=== PATIENT | female | born 1990 | race Caucasian/White ===

== ENCOUNTER 2017-03-10 08:26 | Emergency (ER) | payer SELFPAY ==
[~2017-03-10] VITALS: Ht 167.6 cm; Wt 124.0 kg
[2017-03-10 08:30] VITALS: BP 140/77; PULSE 81; RESP 20; TEMP 97.6; O2SAT 99
--- NOTE | 2017-03-10 08:50 | PD ---
HPI Chief Complaint: Complaint Time Seen by Provider: 08:41 Travel History International Travel<30 days: No Contact w/Intl Traveler<30days: No Traveled to known affect area: No History of Present Illness HPI The patient was seen and examined in the presence of the nurse. This patient complains of right flank pain. It radiates toward the right groin. Duration 45 minutes. Symptoms moderately severe. She has history of kidney stone in the past and this feels similar. She denies injury or fever. She has some nausea. No alleviating factors. No exacerbating factors. PFSH Past Medical History Diminished Hearing: No Genitourinary: Yes (FREQUENT UTI) Kidney Stones: Yes Respiratory: Yes (sits around smoking too much, starts to wheeze) Immunizations Current: Yes Tetanus Vaccination: Unknown Influenza Vaccination: No ?: Not LMP: 03/10/17 : 0 Miscarriage: 0 : 0 Past Surgical History Surgical History: No Previous Surgery Social History Alcohol Use: No Tobacco Use: No Substance Use: No Allergies-Medications (Allergen,Severity, Reaction): Coded Allergies: naproxen (Unverified Allergy, Intermediate, hives, 03/10/17) Reported Meds & Prescriptions Reported Meds & Active Scripts Active Cipro (Ciprofloxacin HCl) 500 Mg Tab 500 Mg PO BID Percocet (Oxycodone-Acetaminophen) 5-325 mg Tab 1 Tab PO Q6H PRN Zofran (Ondansetron HCl) 4 Mg Tab 4 Mg PO Q6HR PRN Flomax (Tamsulosin HCl) 0.4 Mg Cap 0.4 Mg PO HS Review of Systems General / Constitutional: No: Fever Eyes: No: Visual changes HENT: No: Headaches Cardiovascular: No: Chest Pain or Discomfort Respiratory: No: Shortness of Breath Gastrointestinal: Positive: Nausea, No: Abdominal Pain Genitourinary: Positive: Flank Pain, No: Dysuria Musculoskeletal: No: Pain Skin: No Rash Neurologic: No: Weakness Psychiatric: No: Depression Endocrine: No: Polydipsia Hematologic/Lymphatic: No: Easy Bruising Physical Exam Narrative GENERAL: Well-nourished, well-developed patient with right flank pain. SKIN: Focused skin assessment reveals no rash and nodules. Skin is Warm and dry. HEAD: Atraumatic. Normocephalic. EYES: Pupils equal and round. No scleral icterus. No injection or drainage. ENT: No nasal bleeding or discharge. Mucous membranes pink and moist. NECK: Trachea midline. No JVD. CARDIOVASCULAR: Regular rate and rhythm. No murmur appreciated. RESPIRATORY: No accessory muscle use. Clear to auscultation. Breath sounds equal bilaterally. GASTROINTESTINAL: Abdomen soft, non-tender, nondistended. Hepatic and splenic margins not palpable. MUSCULOSKELETAL: No obvious deformities. No clubbing. No cyanosis. No edema. NEUROLOGICAL: Awake and alert. No obvious cranial nerve deficits. Motor grossly within normal limits. Normal speech. PSYCHIATRIC: Appropriate mood and affect; insight and judgment normal. Data Data Last Documented VS Vital Signs Date Time Temp Pulse Resp B/P (MAP) Pulse Ox O2 Delivery O2 Flow Rate FiO2 03/10/17 09:25 94 16 142/96 (111) 100 Room Air 03/10/17 08:[address] Abd/Pel W/O Iv Contrast (03/10/17 ) Ed Urine Pregnancytest Poc (03/10/17 08:46) Urinalysis - C+S If Indicated (03/10/17 08:46) Ondansetron Inj (Zofran Inj) (03/10/17 09:00) Morphine Inj (Morphine Inj) (03/10/17 09:00) Morphine Inj (Morphine Inj) (03/10/17 09:15) Ondansetron Inj (Zofran Inj) (03/10/17 09:15) Urine Culture (03/10/17 09:10) Ed Discharge Order (03/10/17 11:12) Labs Laboratory Tests Test 03/10/17 09:10 Urine Color LIGHT-RED Urine Turbidity CLOUDY Urine pH 6.0 Urine Specific [place] 1.016 Urine Protein 30 mg/dL Urine Glucose (UA) NEG mg/dL Urine Ketones NEG mg/dL Urine Occult Blood LARGE Urine Nitrite NEG Urine Bilirubin NEG Urine Urobilinogen LESS THAN 2.0 MG/DL Urine Leukocyte Esterase MOD Urine RBC /hpf Urine WBC /hpf Urine Squamous Epithelial Cells 2 /hpf Urine Bacteria MANY /hpf Microscopic Urinalysis Comment CULTURE INDICATED MDM Medical Decision Making Medical Screen Exam Complete: Yes Emergency Medical Condition: Yes Medical Record Reviewed: Yes Differential Diagnosis Kidney stone, sciatica, pyelonephritis Narrative Course I have reviewed the patient's electronic medical record. Patient was seen here for kidney stone 2013 I gave her injection of morphine and Zofran for symptom relief Urine is negative Urinalysis shows red and white cells and will be cultured CT of abdomen and pelvis shows a 2 mm right sided kidney stone with some hydronephrosis. I've written prescriptions for pain and nausea medicine as well as a week of Flomax and a week of Cipro This is not her first kidney stone. She should follow-up with urology. Hopefully this will pass given the small size of the stone Diagnosis Primary Impression: Kidney stone on right side Additional Instructions: The patient was advised to follow up with urologist and return if they worsen. The patient was warned about potential sedation for the medications they will receive on prescription. Med/Other Pt SpecificInfo: Prescription(s) given Scripts Ciprofloxacin (Cipro) 500 Mg Tab 500 MG PO BID for Infection, #14 TAB 0 Refills Prov: Yves Singh MD 03/10/17 Oxycodone-Acetaminophen (Percocet) 5-325 mg Tab 1 TAB PO Q6H Y for PAIN, #25 TAB 0 Refills Prov: Yves Singh MD 03/10/17 Ondansetron (Zofran) 4 Mg Tab 4 MG PO Q6HR Y for NAUSEA OR VOMITING, #15 TAB 0 Refills Prov: Yves Singh MD 03/10/17 Tamsulosin (Flomax) 0.4 Mg Cap 0.4 MG PO HS for Manage Prostate Problems, #7 CAP 0 Refills Prov: Yves Singh MD 03/10/17 Disposition: 01 DISCHARGE HOME Condition: Stable Yves Singh MD Mar 10, 2017 08:50
[2017-03-10] MEDS ORDERED: MORPHINE SULFATE 4 MG/ML INJ IM ONE (09:00)
[2017-03-10] MEDS ORDERED: ONDANSETRON HCL 4 MG/2 ML VIAL IM ONE (09:00)
[2017-03-10] MEDS ORDERED: ONDANSETRON HCL 4 MG/2 ML VIAL IV ONE (09:15)
[2017-03-10] MEDS ORDERED: MORPHINE SULFATE 4 MG/ML INJ IV PUSH ONE (09:15)
[2017-03-10 09:25] VITALS: BP 142/96; PULSE 94; RESP 16; O2SAT 100
[2017-03-10 09:37] LABS: BACTERIA, URINE MANY /hpf; BLOOD, URINE LARGE (NEG); COMMENT (UR) CULTURE INDICATED; CULTURE IF INDICATED CULTURE INDICATED; GLUCOSE,URINE NEG (NEG); KETONE, URINE NEG (NEG); NITRITE,URINE NEG (NEG); SQUAMOUS EPITHELIAL CELL URINE 2 /hpf (0-5); URINE COLOR LIGHT-RED (YELLW/STRAW)
--- NOTE | 2017-03-10 10:16 | RADRPT ---
EXAM DATE/TIME: 03/10/2017 09:52 [facility] COMPARISON: CT ABDOMEN & PELVIS W/O CONTRAST, January 19, 2013, 22:21. INDICATIONS : Right flank pain. ORAL CONTRAST: No oral contrast ingested. RADIATION DOSE: 31.72 CTDIvol (mGy) ; Patient body habitus MEDICAL HISTORY : Renal calculi. SURGICAL HISTORY : None. ENCOUNTER: Initial ACUITY: 1 day PAIN SCALE: 7/10 LOCATION: Right flank TECHNIQUE: Volumetric scanning of the abdomen and pelvis was performed. Using automated exposure control and ad justment of the mA and/or kV according to patient size, radiation dose was kept as low as reasonably achievable to obtain optimal diagnostic quality images. DICOM format image data is available electro nically for review and comparison. FINDINGS: LOWER LUNGS: The visualized lower lungs are clear. LIVER: The liver is diffusely hypodense. There are no focal space-occupying lesions or evidence of biliary d uct dilatation. There is no evidence of cholelithiasis. SPLEEN: Normal size without lesion. PANCREAS: Within normal limits. KIDNEYS: The right renal collecting system is mildly distended. A 2 mm calculus is identified in the right ure teropelvic junction. Kidneys and collecting system are otherwise unremarkable. ADRENAL GLANDS: Within normal limits. VASCULAR: There is no aortic aneurysm. BOWEL/MESENTERY: The stomach, small bowel, and colon demonstrate no acute abnormality. There is no free intraperitone al air or fluid. ABDOMINAL WALL: Within normal limits. RETROPERITONEUM: There is no lymphadenopathy. BLADDER: No wall thickening or mass. REPRODUCTIVE: Within normal limits. INGUINAL: There is no lymphadenopathy or hernia. MUSCULOSKELETAL: Within normal limits for patient age. CONCLUSION: 1. 2 mm calculus in the right ureteropelvic junction with mild hydronephrosis. 2. Hepatic steatosis. 3. No other significant abnormality. Esequiel Comer MD on March 10, 2017 at 10:11 Board Certified Radiologist. This report was verified electronically.
[2017-03-10] MEDS ORDERED: CIPR-9 PO (11:14)
[2017-03-10] MEDS ORDERED: ZOFR4TAB PO (11:14)
[2017-03-10] MEDS ORDERED: PERC5TAB12 PO (11:14)
[2017-03-10] MEDS ORDERED: TAMS5CAP PO (11:14)
[2017-03-10 11:44] VITALS: BP 136/80
== END 2017-03-10 11:44 | disposition home or self-care (01) ==
LOC: NEPE 08:26
DX: N20.0 Calculus of kidney (principal); R11.0 Nausea; Z87.442 Personal history of urinary calculi; Z87.448 Personal history of other diseases of urinary system
CPT/HCPCS: 74176; 81001; 84703; 87086; 96374; 96375; 99285; J2270; J2405

== ENCOUNTER 2017-03-15 09:15 | Emergency (ER) | payer SELFPAY ==
[~2017-03-15] VITALS: Ht 167.6 cm; Wt 130.0 kg
[~2017-03-15 09:15] MED LIST: CIPR-9 PO; PERC5TAB12 PO; TAMS5CAP PO; ZOFR4TAB PO
[2017-03-15 09:17] VITALS: BP 140/93; PULSE 104; RESP 14; TEMP 98.7; O2SAT 98
[2017-03-15 09:41] VITALS: BP 145/63; PULSE 95; RESP 18; O2SAT 98
[2017-03-15] MEDS ORDERED: SODIUM CHLOR 0.9% 1000 ML INJ 1,000 ML IV SCH (09:54)
[2017-03-15] MEDS ORDERED: KETOROLAC TROMETHAMINE 30 MG/ML (IVP) VIAL IVP ONE (10:00)
[2017-03-15] MEDS ORDERED: SODIUM CHLORIDE 0.9% FLUSH 10 ML FLUSH IV FLUSH PRN (10:00)
[2017-03-15] MEDS ORDERED: ONDANSETRON HCL 4 MG/2 ML VIAL IVP ONE (10:00)
[2017-03-15 10:12] VITALS: RESP 18; O2SAT 98
[2017-03-15 10:27] LABS: AUTOMATED NEUTROPHIL # 10.1 TH/MM3 (1.8-7.7); BASOPHIL # 0.1 TH/MM3 (0-0.2); BASOPHIL % 0.5 % (0.0-2.0); EOSINOPHIL # 0.1 TH/MM3 (0-0.4); EOSINOPHIL % 0.5 % (0.0-4.0); HEMATOCRIT 39.3 % (35.0-46.0); HEMO FLAGS DIFF FINAL; LYMPH % 11.2 % (9.0-44.0); LYMPHOCYTE # 1.3 TH/MM3 (1.0-4.8); MEAN CELL VOLUME 88.8 FL (80.0-100.0); MEAN CORPUSCULAR HEMOGLOBIN 28.7 PG (27.0-34.0); MEAN CORPUSCULAR HGB CONC 32.4 % (32.0-36.0); MONO % 3.3 % (0.0-8.0); NEUT % 84.5 % (16.0-70.0); PLATELET COUNT 347 TH/MM3 (150-450); RED BLOOD COUNT 4.42 MIL/MM3 (4.00-5.30); RED CELL DISTRIBUTION WIDTH 14.1 % (11.6-17.2)
[2017-03-15 10:40] LABS: ANION GAP 4 MEQ/L (5-15); AST (GOT) 20 U/L (15-37); BICARBONATE 27.7 MEQ/L (21.0-32.0); BLOOD UREA NITROGEN 11 MG/DL (7-18); CHLORIDE 106 MEQ/L (98-107); GLOMERULAR FILTRATION RATE 63 ML/MIN (>89); SODIUM (NA) 138 MEQ/L (136-145)
[2017-03-15 10:41] LABS: ALT (GPT) 42 U/L (10-53)
[2017-03-15 10:43] LABS: ALKALINE PHOSPHATASE 62 U/L (45-117); TOTAL BILIRUBIN ADULT 0.2 MG/DL (0.2-1.0)
[2017-03-15 10:48] LABS: BLOOD, URINE LARGE (NEG); GLUCOSE,URINE NEG (NEG); KETONE, URINE NEG (NEG); NITRITE,URINE NEG (NEG); URINE COLOR YELLOW (YELLW/STRAW)
--- NOTE | 2017-03-15 10:54 | RADRPT ---
EXAM DATE/TIME: 03/15/2017 10:36 [facility] COMPARISON: CT ABDOMEN & PELVIS W/O CONTRAST, March 10, 2017, 9:52. INDICATIONS : Right flank pain. ORAL CONTRAST: No oral contrast ingested. RADIATION DOSE: 17.97 CTDIvol (mGy) MEDICAL HISTORY : Renal calculi. SURGICAL HISTORY : None. ENCOUNTER: Initial ACUITY: 4 - 6 days PAIN SCALE: 4/10 LOCATION: Right flank TECHNIQUE: Volumetric scanning of the abdomen and pelvis was performed. Using automated exposure control and ad justment of the mA and/or kV according to patient size, radiation dose was kept as low as reasonably achievable to obtain optimal diagnostic quality images. DICOM format image data is available electro nically for review and comparison. FINDINGS: LOWER LUNGS: The visualized lower lungs are clear. LIVER: Homogeneous density without lesion. There is no dilation of the biliary tree. No calcified gallston es. Hepatic steatosis is again noted. SPLEEN: Normal size without lesion. PANCREAS: Within normal limits. KIDNEYS: Normal in size and shape. There is no mass or renal calculi. There is mild right hydronephrosis. Righ t ureter is normal in size. There is a new distal right ureteral calculus seen on axial image #137 me asuring approximately 1-2 mm in size. This was not present on the prior study. ADRENAL GLANDS: Within normal limits. VASCULAR: There is no aortic aneurysm. BOWEL/MESENTERY: The stomach, small bowel, and colon demonstrate no acute abnormality. There is no free intraperitone al air or fluid. ABDOMINAL WALL: Within normal limits. RETROPERITONEUM: There is no lymphadenopathy. BLADDER: No wall thickening or mass. REPRODUCTIVE: Within normal limits. INGUINAL: There is no lymphadenopathy or hernia. MUSCULOSKELETAL: Within normal limits for patient age. CONCLUSION: 1. Tiny distal right renal calculus measuring 1-2 mm just above the level of the ureterovesical junct ion. There is mild right hydronephrosis. 2. No renal calculi. Cal Page MD on March 15, 2017 at 10:46 Board Certified Radiologist. This report was verified electronically.
[2017-03-15 11:00] LABS: BACTERIA, URINE FEW /hpf
[2017-03-15 11:01] LABS: COMMENT (UR) CULTURE INDICATED; CULTURE IF INDICATED CULTURE INDICATED; RBC, URINE 50-75 /hpf (0-3)
--- NOTE | 2017-03-15 12:23 | PD ---
HPI Chief Complaint: Flank/Kidney Pain Time Seen by Provider: 09:24 Travel History International Travel<30 days: No Contact w/Intl Traveler<30days: No Traveled to known affect area: No History of Present Illness HPI Patient is a 27-year-old female with history of kidney stone diagnosed 5 days ago, comes in complaining of right flank pain radiating into her right groin. She says the pain seemed to be getting worse in the past 2 days. She also feels very bloated in her stomach. She says it feels like a muscle cramp that keeps coming and going. She denies any issues urinating. She says she has had some nausea and vomiting. She denies fever or chills. She has been taking her Percocet at home with minimal relief of her pain. PFSH Past Medical History Diminished Hearing: No Genitourinary: Yes (FREQUENT UTI) Kidney Stones: Yes () Respiratory: Yes (sits around smoking too much, starts to wheeze) Immunizations Current: Yes ?: Not LMP: FEB 2017 : 0 Miscarriage: 0 : 0 Social History Alcohol Use: Yes (on occasion) Tobacco Use: No Substance Use: No Allergies-Medications (Allergen,Severity, Reaction): Coded Allergies: naproxen (Unverified Allergy, Intermediate, hives, 03/10/17) Reported Meds & Prescriptions Reported Meds & Active Scripts Active Cipro (Ciprofloxacin HCl) 500 Mg Tab 500 Mg PO BID Percocet (Oxycodone-Acetaminophen) 5-325 mg Tab 1 Tab PO Q6H PRN Zofran (Ondansetron HCl) 4 Mg Tab 4 Mg PO Q6HR PRN Flomax (Tamsulosin HCl) 0.4 Mg Cap 0.4 Mg PO HS Review of Systems Except as stated in HPI: all other systems reviewed are Neg General / Constitutional: No: Fever, Chills HENT: No: Headaches, Lightheadedness Cardiovascular: No: Chest Pain or Discomfort Respiratory: No: Shortness of Breath Gastrointestinal: Positive: Nausea, Vomiting, Abdominal Pain Genitourinary: Positive: Flank Pain Neurologic: No: Weakness, Dizziness Physical Exam Narrative GENERAL: Awake and alert, in no acute distress. SKIN: Focused skin assessment warm/dry. HEAD: Atraumatic. Normocephalic. EYES: Pupils equal and round. No scleral icterus. ENT: Mucous membranes pink and moist. NECK: Trachea midline. No JVD. CARDIOVASCULAR: Regular rate and rhythm. No murmur appreciated. RESPIRATORY: No accessory muscle use. Clear to auscultation. Breath sounds equal bilaterally. GASTROINTESTINAL: Abdomen soft, non-tender, nondistended. Right CVA tenderness. MUSCULOSKELETAL: No obvious deformities. No clubbing. No cyanosis. No edema. NEUROLOGICAL: Awake and alert. No obvious cranial nerve deficits. Motor grossly within normal limits. Normal speech. PSYCHIATRIC: Appropriate mood and affect; insight and judgment normal. Data Data Last Documented VS Vital Signs Date Time Temp Pulse Resp B/P (MAP) Pulse Ox O2 Delivery O2 Flow Rate FiO2 03/15/17 10:12 18 98 Room Air 03/15/17 09:41 95 03/15/17 09:17 98.7 Orders Orders Complete Blood Count With Diff (03/15/17 09:54) Comprehensive Metabolic Panel (03/15/17 09:54) Lactic Acid (03/15/17 09:54) Urinalysis - C+S If Indicated (03/15/17 09:54) Ct Abd/Pel W/O Iv Contrast (03/15/17 09:54) Iv Access Insert/Monitor (03/15/17 09:54) Ecg Monitoring (03/15/17 09:54) Oximetry (03/15/17 09:54) Ondansetron Inj (Zofran Inj) (03/15/17 10:00) Sodium Chlor 0.9% 1000 Ml Inj (Ns 1000 M (03/15/17 09:54) Sodium Chloride 0.9% Flush (Ns Flush) (03/15/17 10:00) Ketorolac Inj (Toradol Inj) (03/15/17 10:00) Urine Culture (03/15/17 10:04) Labs Laboratory Tests Test 03/15/17 10:04 03/15/17 10:09 Urine Color YELLOW Urine Turbidity HAZY Urine pH 6.0 Urine Specific [place] 1.015 Urine Protein TRACE mg/dL Urine Glucose (UA) NEG mg/dL Urine Ketones NEG mg/dL Urine Occult Blood LARGE Urine Nitrite NEG Urine Bilirubin NEG Urine Urobilinogen LESS THAN 2.0 MG/DL Urine Leukocyte Esterase SMALL Urine RBC 50-75 /hpf Urine WBC 9-14 /hpf Urine Squamous Epithelial Cells 6-8 /hpf Urine Bacteria FEW /hpf Microscopic Urinalysis Comment CULTURE INDICATED White Blood Count 12.0 TH/MM3 Red Blood Count 4.42 MIL/MM3 Hemoglobin 12.7 GM/DL Hematocrit 39.3 % Mean Corpuscular Volume 88.8 FL Mean Corpuscular Hemoglobin 28.7 PG Mean Corpuscular Hemoglobin Concent 32.4 % Red Cell Distribution Width 14.1 % Platelet Count 347 TH/MM3 Mean Platelet Volume 8.0 FL Neutrophils (%) (Auto) 84.5 % Lymphocytes (%) (Auto) 11.2 % Monocytes (%) (Auto) 3.3 % Eosinophils (%) (Auto) 0.5 % Basophils (%) (Auto) 0.5 % Neutrophils # (Auto) 10.1 TH/MM3 Lymphocytes # (Auto) 1.3 TH/MM3 Monocytes # (Auto) 0.4 TH/MM3 Eosinophils # (Auto) 0.1 TH/MM3 Basophils # (Auto) 0.1 TH/MM3 CBC Comment DIFF FINAL Differential Comment Blood Urea Nitrogen 11 MG/DL Creatinine 1.06 MG/DL Random Glucose 122 MG/DL Total Protein 7.4 GM/DL Albumin 3.8 GM/DL Calcium Level 8.8 MG/DL Alkaline Phosphatase 62 U/L Aspartate Amino Transf (AST/SGOT) 20 U/L Alanine Aminotransferase (ALT/SGPT) 42 U/L Total Bilirubin 0.2 MG/DL Sodium Level 138 MEQ/L Potassium Level 4.0 MEQ/L Chloride Level 106 MEQ/L Carbon Dioxide Level 27.7 MEQ/L Anion Gap 4 MEQ/L Estimat Glomerular Filtration Rate 63 ML/MIN Lactic Acid Level 1.5 mmol/L [facility] Medical Decision Making Medical Screen Exam Complete: Yes Emergency Medical Condition: Yes Medical Record Reviewed: Yes Differential Diagnosis UTI versus pyelonephritis versus renal stone versus hydronephrosis Narrative Course Patient is a 27-year-old female who comes in complaining of right flank pain radiating into her groin. Exam shows right CVA tenderness. IV established, labs sent. Labs showed creatinine is within normal limits. CT abdomen and pelvis performed shows a stone at the junction of the UVJ. Patient given IV fluids and Toradol. She reports feeling better. Patient advised to take ibuprofen at home to help with the pain. She is advised to increase her fluid intake. Advised follow-up with urology. Advised to return to the ED as needed for any worsening symptoms. Advised to continue her Cipro. Diagnosis Primary Impression: Renal stone Referrals: Stiven Enrique DO call for appointment Patient Instructions: General Instructions, Kidney Stones (ED) Additional Instructions: Follow-up with urology. Drink plenty of fluids. Take ibuprofen for pain and the Percocet as needed for severe pain. Return to the ED as needed for any worsening symptoms. Disposition: 01 DISCHARGE HOME Condition: Stable Stephani Real MD Mar 15, 2017 12:23
== END 2017-03-15 12:35 | disposition home or self-care (01) ==
LOC: NEPC 09:15
DX: N20.0 Calculus of kidney (principal); N39.0 Urinary tract infection, site not specified; B96.20 Unspecified Escherichia coli [E. coli] as the cause of diseases classified elsewhere
CPT/HCPCS: 74176; 80053; 81001; 83605; 85025; 87077; 87086; 87186; 96374; 96375; 99285; J1885; J2405; J7030

== ENCOUNTER 2017-10-04 10:09 | Emergency (ER) | payer SELFPAY ==
[~2017-10-04] VITALS: Ht 165.1 cm; Wt 120.0 kg
[2017-10-04 10:15] VITALS: BP 139/99; PULSE 99; RESP 16; TEMP 98.9; O2SAT 100
--- NOTE | 2017-10-04 11:09 | PD ---
HPI Chief Complaint: ENT Complaint Time Seen by Provider: 10:34 Travel History International Travel<30 days: No Contact w/Intl Traveler<30days: No Traveled to known affect area: No History of Present Illness HPI 27-year-old female presents emergency department with 4 day history of left ear pain with radiation into the left posterior throat. Patient thought it might be allergies for which she is taking medication. She has no fever or chills. Pain is worse at night. Patient denies increased pain with chewing. Patient states increased pain with swallowing in the past 2 days. She denies cough or sinus headache or postnasal drip. No abdominal pain or heartburn. Patient is allergic to naproxen but can take ibuprofen. PFSH Past Medical History Diminished Hearing: No Genitourinary: Yes (FREQUENT UTI) Kidney Stones: Yes () Respiratory: Yes (sits around smoking too much, starts to wheeze) Immunizations Current: Yes ?: Not : 0 Miscarriage: 0 : 0 Social History Alcohol Use: Yes (on occasion) Tobacco Use: No Substance Use: No Allergies-Medications (Allergen,Severity, Reaction): Coded Allergies: naproxen (Unverified Allergy, Intermediate, hives, 03/10/17) Reported Meds & Prescriptions Reported Meds & Active Scripts Active Cipro (Ciprofloxacin HCl) 500 Mg Tab 500 Mg PO BID Percocet (Oxycodone-Acetaminophen) 5-325 mg Tab 1 Tab PO Q6H PRN Zofran (Ondansetron HCl) 4 Mg Tab 4 Mg PO Q6HR PRN Flomax (Tamsulosin HCl) 0.4 Mg Cap 0.4 Mg PO HS Review of Systems Except as stated in HPI: all other systems reviewed are Neg General / Constitutional: No: Fever Eyes: No: Visual changes HENT: Positive: Sore Throat, Earache, No: Headaches, Vertigo, Lightheadedness, Rhinitis, Rhinorrhea, Congestion, Nosebleed, Neck Stiffness, Neck Pain, Masses, Gingival Bleeding, Dental Difficulties, Ear Discharge Cardiovascular: No: Chest Pain or Discomfort Respiratory: No: Shortness of Breath Gastrointestinal: No: Abdominal Pain Genitourinary: No: Dysuria Musculoskeletal: No: Pain Skin: No Rash Neurologic: No: Weakness Psychiatric: No: Depression Endocrine: No: Polydipsia Hematologic/Lymphatic: No: Easy Bruising Physical Exam Narrative GENERAL: Patient appears in no acute distress. SKIN: Warm and dry. Normal color. Normal turgor. No rash. HEAD: Atraumatic. Normocephalic. Patient has discomfort with palpation over the left TMJ with movement of the mandible. No audible click is noted. EYES: Pupils equal and round. No scleral icterus. No injection or drainage. ENT: No nasal bleeding or discharge. Mucous membranes pink and moist. TMs appear essentially normal bilaterally with no signs of serous otitis. No sinus tenderness to palpation or percussion. Posterior pharynx shows some mild cobblestoning and swelling, but no significant erythema or exudate. Uvula is midline. Airways patent. NECK: Trachea midline. Supple. Patient has mild to moderate tenderness in the left anterior cervical lymph node chain. CARDIOVASCULAR: Regular rate and rhythm. RESPIRATORY: No accessory muscle use. Clear to auscultation. Breath sounds equal bilaterally. GASTROINTESTINAL: Abdomen soft, non-tender, nondistended. Hepatic and splenic margins not palpable. MUSCULOSKELETAL: Extremities without clubbing, cyanosis, or edema. No obvious deformities. NEUROLOGICAL: Awake and alert. No obvious cranial nerve deficits. Motor grossly within normal limits. Five out of 5 muscle strength in the arms and legs. Normal speech. PSYCHIATRIC: Appropriate mood and affect; insight and judgment normal. Data Data Last Documented VS Vital Signs Date Time Temp Pulse Resp B/P (MAP) Pulse Ox O2 Delivery O2 Flow Rate FiO2 18 10:15 98.9 99 16 139/99 (112) 100 MDM Medical Decision Making Medical Screen Exam Complete: Yes Emergency Medical Condition: Yes Differential Diagnosis Left ear pain. TMJ. Pharyngitis. Narrative Course I feel the patient has a combination of pharyngitis as well as possible TMJ Patient will be treated with amoxicillin 875 twice daily for 10 days. Patient will take ibuprofen 600 mg 4 times daily #40. Patient also started on Flexeril 5 mg nightly #10. Recommend follow-up with local primary care physician or dentist if symptoms persist. Diagnosis Primary Impression: Otalgia of left ear Additional Impressions: Pharyngitis Qualified Codes: J02.9 - Acute pharyngitis, unspecified TMJ arthralgia Qualified Codes: M26.622 - Arthralgia of left temporomandibular joint Referrals: Dentist Patient Instructions: General Instructions, Temporomandibular Disorder (ED) Additional Instructions: I feel the patient has a combination of pharyngitis as well as possible TMJ Patient will be treated with amoxicillin 875 twice daily for 10 days. Patient will take ibuprofen 600 mg 4 times daily #40. Patient also started on Flexeril 5 mg nightly #10. Recommend follow-up with local primary care physician or dentist if symptoms persist. Med/Other Pt SpecificInfo: Prescription(s) given Disposition: 01 DISCHARGE HOME Condition: Stable Eleuterio Lemus Oct 04, 2017 11:09
[2017-10-04] MEDS ORDERED: IBUP-232 PO (11:11)
[2017-10-04] MEDS ORDERED: CYCL5TAB PO (11:11)
[2017-10-04] MEDS ORDERED: AMOX875T PO (11:11)
== END 2017-10-04 11:26 | disposition home or self-care (01) ==
LOC: NEPD 10:09
DX: H92.02 Otalgia, left ear (principal); J02.9 Acute pharyngitis, unspecified; M26.622 Arthralgia of left temporomandibular joint
CPT/HCPCS: 99283